=== PATIENT | female | born 1970 | race Hispanic/Latino ===

== ENCOUNTER 2017-03-16 20:18 | Emergency (ER) | payer MEDICAID, OTHER ==
[2017-03-16 20:18] VITALS: BMI 29.8
[2017-03-16 20:57] VITALS: RESP 20; O2SAT 99
[2017-03-16] MEDS ORDERED: Albuterol-Ipratrop 3 mg / 0.5 (3 ml) UD INH STA (22:00)
[2017-03-16] MEDS ORDERED: Albuterol-Ipratrop 3 mg / 0.5 (3 ml) UD ONE (22:13)
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
[2017-03-16 23:38] VITALS: BP 132/86; PULSE 88; TEMP 98
== END 2017-03-16 23:37 | disposition home or self-care (01) ==
LOC: C.ER 20:18
DX: G89.29 Other chronic pain (principal); R05 Cough

== ENCOUNTER 2019-04-11 08:55 | Emergency (ER) | payer MEDICAID, OTHER | END 2019-04-11 12:45 | disposition home or self-care (01) | LOC: C.ER 08:55 ==